=== PATIENT | female | born 1995 | race Caucasian/White ===

== ENCOUNTER 2017-01-06 16:03 | Emergency (ER) | payer BC ==
[~2017-01-06] VITALS: Ht 149.9 cm; Wt 82.0 kg
[~2017-01-06 16:03] MED LIST: NORT75CA2 PO; ONDA4TAB10 SL
[2017-01-06 16:15] VITALS: TEMP 37.5; Ht 149.9 cm; Wt 82.0 kg
[2017-01-06] MEDS ORDERED: ONDANSETRON INJ 2 MG/ML 2 ML VIAL IV STA (16:45)
[2017-01-06] MEDS ORDERED: SODIUM CHLORIDE 0.9% 1000ML 1,000 ML IV STA ×2 (16:45→19:27)
[2017-01-06 16:48] VITALS: O2SAT 98
[2017-01-06 17:13] LABS: BASO % 0.3 %; BASO ABS # 0.03 K/uL (0-0.2); COMPLETE YES; EOS % 1.4 %; HEMATOCRIT 37.6 % (37-47); IG% 0.2 %; LYMPH % 22.6 %; LYMPH ABS # 2.16 K/uL (1.2-3.4); MEAN CELL VOLUME 79.3 fL (80-100); MEAN CORPUSCULAR HEMOGLOBIN 25.9 pg (25-34); MEAN CORPUSCULAR HGB CONC 32.7 g/dl (32-36); MEAN PLATELET VOLUME 10.7 fL (7.4-10.4); MONO % 4.6 %; NEUT % 70.9 %; PLATELET COUNT 254 K/uL (130-400); RED BLOOD COUNT 4.74 M/uL (4.2-5.4); WHITE BLOOD COUNT 9.57 K/uL (4.8-10.8)
[2017-01-06 17:26] LABS: ISTAT CREATININE 0.7 mg/dl (0.6-1.3); ISTAT HEMOGLOBIN 12.9 g/dl (12.0-16.0); ISTAT IONIZED CALCIUM 1.18 mmol/l (1.12-1.32)
[2017-01-06 17:33] LABS: ALT/SGPT 38 U/L (12-78); AST/SGOT 18 U/L (15-37); BLOOD UREA NITROGEN 9 mg/dl (7-18); BUN/CREATININE RATIO 12.7 (10-20); CALCIUM 8.8 mg/dl (8.5-10.1); CARBON DIOXIDE 27 mmol/L (21-32); CHLORIDE 106 mmol/L (98-107); CREATININE 0.73 mg/dl (0.60-1.20); GLUCOSE 88 mg/dl (70-99); POTASSIUM 3.7 mmol/L (3.5-5.1); SODIUM 141 mmol/L (136-145)
[2017-01-06 17:39] LABS: ALKALINE PHOSPHATASE 103 U/L (45-117)
--- NOTE | 2017-01-06 17:42 | DIAGNOSTIC IMAGING REPORT ---
PA CHEST RADIOGRAPH AND UPRIGHT AND SUPINE AP RADIOGRAPHS OF THE ABDOMEN CLINICAL HISTORY: Abdominal pain, nausea and vomiting. COMPARISON STUDY: No previous studies for comparison. FINDINGS: Lung volumes are normal. Lungs are clear. There is no pneumothorax or pleural effusion. Cardiac size is normal. Mediastinal contours are normal. There is no free air. Bowel gas pattern is normal. IMPRESSION: 1. No free air or evidence of bowel obstruction. 2. No acute cardiopulmonary findings. Electronically signed by: Elvis Arriola M.D. 01/06/2017 5:41 PM Dictated Date/Time: 01/06/2017 5:40 PM
--- NOTE | 2017-01-06 18:01 | EMERGENCY ROOM VISIT NOTE ---
History Report prepared by Khoi: Gay Simmons Under the Supervision of: Dr. Lenin Dominguez M.D. First contact with patient: 16:37 Chief Complaint: VOMITING Stated Complaint: VOMITING,DIARRHEA,DEHYDRATED,CHEST PAIN History of Present Illness The patient is a 21 year old female who presents to the Emergency Room with complaints of persistent vomiting that started a couple days ago. She is also experiencing persistent diarrhea and is concerned about dehydration. She states that she was diagnosed with chronic abdominal pain 4-5 years ago and her current abdominal pain does not feel any different than her chronic pain. The patient intermittently experiences nausea and vomiting with the pain. She is prescribed Nortriptyline and Zofran. She state that she is unable to keep down water now. Her most recent episode of vomiting was earlier today and she took Zofran this morning. The patient is also experiencing intermittent sharp chest pain that started a couple months ago, but has become more constant over the last 24 hours. The patient denies any history of abdominal surgeries including a cholecystectomy or an appendectomy. She adds that she had an abdominal CT scan done a couple years ago, which revealed kidney stones, a lesion on her liver, and bilateral ovarian cysts. The patient's last normal menstrual period was about a half of a week ago. She denies any family history of heart issues or sudden . Source of History: patient Onset: a couple days ago Quality: other (vomiting) Timing: other (persistent) Associated Symptoms: + abdominal pain, + chest pain (intermittent), + diarrhea, + nausea, + vomiting Review of Systems See HPI for pertinent positives & negatives. A total of 10 systems reviewed and were otherwise negative. Past Medical & Surgical Medical Problems: (1) Ganglion cyst of wrist (2) History of viral gastroenteritis (3) Kidney stone (4) Ovarian cyst Surgical Problems: (1) History of wisdom tooth extraction Family History Cancer Social History Smoking Status: Never Smoker Alcohol Use: occasionally Drug Use: none Housing Status: lives with roommate Occupation Status: [employer] Current/Historical Medications Scheduled Nortriptyline Hcl (Pamelor), 75 MG PO HS Allergies Coded Allergies: No Known Allergies (Unverified , 10/01/15) Physical Exam Vital Signs Date Time Temp Pulse Resp B/P Pulse Ox O2 Delivery O2 Flow Rate FiO2 01/06/17 20:51 101 20 143/83 97 01/06/17 20:01 95 19 141/85 95 Room Air 01/06/17 17:49 102 18 143/83 98 Room Air 01/06/17 17:10 105 01/06/17 16:48 98 Room Air 01/06/17 16:48 98 Room Air 01/06/17 16:15 37.5 118 18 134/78 98 Room Air Physical Exam GENERAL: Patient is a healthy-appearing well-nourished female. HEAD: Normocephalic atraumatic EYES: Ocular movements intact pupils equal and react to light OROPHARYNX mucous membranes are moist no exudates present no erythema or edema present NECK: Supple no nuchal rigidity CHEST: Good equal expansion LUNGS: Clear and equal to auscultation CARDIAC: Normal S1 and S2 ABDOMEN: Soft nontender no guarding BACK: No CVA tenderness EXTREMITIES: No pain upon palpation normal muscle strength in all groups no clubbing cyanosis or edema NEURO: Patient is following commands is answering questions appropriately. Alert and oriented x3 Cranial Nerves 2-12 grossly intact Medical Decision & Procedures ER Provider Diagnostic Interpretation: X-ray results as stated below per interpretation by me and the radiologist: PA CHEST RADIOGRAPH AND UPRIGHT AND SUPINE AP RADIOGRAPHS OF THE ABDOMEN IMPRESSION: 1. No free air or evidence of bowel obstruction. 2. No acute cardiopulmonary findings. Electronically signed by: Elvis Arriola M.D. 01/06/2017 5:41 PM Dictated Date/Time: 01/06/2017 5:40 PM Laboratory Results 01/06/17 17:04 Red Blood Count 4.74, Mean Corpuscular Volume 79.3, Mean Corpuscular Hemoglobin 25.9, Mean Corpuscular Hemoglobin Concent 32.7, Mean Platelet Volume 10.7, Neutrophils (%) (Auto) 70.9, Lymphocytes (%) (Auto) 22.6, Monocytes (%) (Auto) 4.6, Eosinophils (%) (Auto) 1.4, Basophils (%) (Auto) 0.3, Neutrophils # (Auto) 6.79, Lymphocytes # (Auto) 2.16, Monocytes # (Auto) 0.44, Eosinophils # (Auto) 0.13, Basophils # (Auto) 0.03 01/06/17 17:04 Test 01/06/17 00:00 01/06/17 17:04 01/06/17 17:11 01/06/17 17:13 Urine Color YELLOW Urine Appearance CLEAR (CLEAR) Urine pH 7.0 (4.5-7.5) Urine Specific Frost 1.006 (1.000-1.030) Urine Protein NEG (NEG) Urine Glucose (UA) NEG (NEG) Urine Ketones NEG (NEG) Urine Occult Blood NEG (NEG) Urine Nitrite NEG (NEG) Urine Bilirubin NEG (NEG) Urine Urobilinogen NEG (NEG) Urine Leukocyte Esterase NEG (NEG) Urine Test NEG (NEG) White Blood Count 9.57 K/uL (4.8-10.8) Red Blood Count 4.74 M/uL (4.2-5.4) Hemoglobin 12.3 g/dL (12.0-16.0) Hematocrit 37.6 % (37-47) Mean Corpuscular Volume 79.3 fL (80-100) Mean Corpuscular Hemoglobin 25.9 pg (25-34) Mean Corpuscular Hemoglobin Concent 32.7 g/dl (32-36) Platelet Count 254 K/uL (130-400) Mean Platelet Volume 10.7 fL (7.4-10.4) Neutrophils (%) (Auto) 70.9 % Lymphocytes (%) (Auto) 22.6 % Monocytes (%) (Auto) 4.6 % Eosinophils (%) (Auto) 1.4 % Basophils (%) (Auto) 0.3 % Neutrophils # (Auto) 6.79 K/uL (1.4-6.5) Lymphocytes # (Auto) 2.16 K/uL (1.2-3.4) Monocytes # (Auto) 0.44 K/uL (0.11-0.59) Eosinophils # (Auto) 0.13 K/uL (0-0.5) Basophils # (Auto) 0.03 K/uL (0-0.2) RDW Standard Deviation 40.6 fL (36.4-46.3) RDW Coefficient of Variation 14.2 % (11.5-14.5) Immature Granulocyte % (Auto) 0.2 % Immature Granulocyte # (Auto) 0.02 K/uL (0.00-0.02) Est Creatinine Clear Calc Drug Dose 111.1 ml/min Estimated GFR () 134.5 Estimated GFR (Non- 116.1 BUN/Creatinine Ratio 12.7 (10-20) Calcium Level 8.8 mg/dl (8.5-10.1) Total Bilirubin 0.2 mg/dl (0.2-1) Direct Bilirubin < 0.1 mg/dl (0-0.2) Aspartate Amino Transf (AST/SGOT) 18 U/L (15-37) Alanine Aminotransferase (ALT/SGPT) 38 U/L (12-78) Alkaline Phosphatase 103 U/L (45-117) Total Creatine Kinase 51 U/L (26-192) Creatine Kinase MB < 0.5 ng/ml (0.5-3.6) Creatine Kinase MB Ratio (0-3.0) Troponin I < 0.015 ng/ml (0-0.045) Total Protein 7.4 gm/dl (6.4-8.2) Albumin 3.7 gm/dl (3.4-5.0) Lipase 131 U/L (73-393) Bedside D-Dimer 124 ng/mlFEU (0-450) Bedside Hemoglobin 12.9 g/dl (12.0-16.0) Bedside Hematocrit 38 % (37-47) Bedside Sodium 141 mEq/L (135-144) Bedside Potassium 3.6 mEq/L (3.3-5.0) Bedside Chloride 101 mEq/L (101-112) Bedside Total CO2 24 mEq/l (24-31) Anion Gap 19.0 mmol/L (16-25) Bedside Blood Urea Nitrogen 8 mg/dl (7-18) Bedside Creatinine 0.7 mg/dl (0.6-1.3) Bedside Glucose (other) 90 mg/dl (70-99) Bedside Ionized Calcium (Andria) 1.18 mmol/l (1.12-1.32) Labs reviewed by ED physician. Medications Administered Medications (Trade) Dose Ordered Sig/Graciela Route Start Time Stop Time Status Last Admin Dose Admin Sodium Chloride (Nss 1000ml) 1,000 ml @ 999 mls/hr Q1H1M STAT IV 01/06/17 16:45 01/06/17 17:45 DC 01/06/17 17:04 999 MLS/HR Ondansetron HCl (Zofran Inj) 4 mg NOW STAT IV 01/06/17 16:45 01/06/17 16:48 DC 01/06/17 17:04 4 MG Ketorolac Tromethamine (Toradol Inj) 30 mg NOW STAT IV 01/06/17 18:32 01/06/17 18:33 DC 01/06/17 18:39 30 MG Ondansetron HCl 1 homepack 1 homepack UD ONCE PO 01/06/17 19:15 01/06/17 19:16 DC 01/06/17 20:38 1 HOMEPACK Sodium Chloride (Nss 1000ml) 1,000 ml @ 999 mls/hr Q1H1M STAT IV 01/06/17 19:27 01/06/17 20:27 DC 01/06/17 19:39 999 MLS/HR Methylprednisolone Sodium Succinate (Solu-Medrol IV) 60 mg NOW STAT IV 01/06/17 19:27 01/06/17 19:31 DC 01/06/17 19:39 60 MG Prochlorperazine Edisylate (Compazine Inj) 10 mg NOW STAT IV 01/06/17 19:27 01/06/17 19:31 DC 01/06/17 19:40 10 MG Diphenhydramine HCl (Benadryl Inj) 50 mg NOW STAT IV 01/06/17 19:27 01/06/17 19:31 DC 01/06/17 19:40 50 MG ECG Indication: chest pain Rate (beats per minute): 108 Rhythm: sinus tachycardia Findings: no acute ischemic change, no ectopy Change: Repeat EKG on 01/06/2017 showed normal sinus rhythm, rate of 96, no acute ischemic changes, no ectopy ED Course 1639: Past medical records reviewed. The patient was evaluated in room A12. A complete history and physical examination was performed. 1645: Ordered Zofran Inj 4 mg IV, Sodium Chloride 1000 ml @ 999 mls/hr IV 1830: Upon reexamination the patient is doing well. I discussed results and treatment plan with the patient. She verbalizes agreement and understanding. The patient is ready for discharge. 1831: Ordered Toradol Inj 30 mg IV 1914: Ordered Ondansetron HCl 1 homepack PO 1926: Ordered Benadryl Inj 50 mg IV, Compazine Inj 10 mg IV, Solu-Medrol 60 mg IV, Sodium Chloride 1000 ml @ 999 mls/hr IV 1928: The patient's nurses informed me that the patient does not feel ready to leave because she is still vomiting. 2033: Upon reexamination the patient is doing better. I discussed results and treatment plan with the patient. She verbalizes agreement and understanding. The patient is ready for discharge. Medical Decision Differential diagnosis: Etiologies such as cardiac ischemia, aortic dissection, pulmonary embolism, pneumonia, pneumothorax, musculoskeletal, infections, pericarditis, myocarditis , esophageal rupture, gastrointestinal, as well as others were entertained. this is a 21-year-old female who presents emergency department complaining of chest pain. The patient has a history of nausea vomiting and follows up with gastroenterology doctors in [place]. She states she is not here for that vomiting or the diarrhea. Despite being here 4 hours patient was unable to provide a stool sample here in the emergency department. The patient is more concerned about chest pain. As the chest pain has been ongoing for the past several days and expect her troponin to be elevated if this were related to cardiac ischemia. As such it is not. In addition the patient has normal CK-MB as well as a normal EKG. EKGs were repeated twice in the emergency department without any changes noted. In addition the patient has normal d-dimer. Based on these findings I feel the patient can be safely discharged home for follow- up with cardiology. I also recommended the patient follow-up with gastroenterology area in the emergency department the patient was given normal saline bolus, Zofran Reglan Compazine and Benadryl for her nausea. This resulted in improvement in her symptoms. I do believe the patient can be safely discharged home. Patient was in agreement with the treatment plan. Impression Primary Impression: Precordial chest pain Scribe Attestation The scribe's documentation has been prepared under my direction and personally reviewed by me in its entirety. I confirm that the note above accurately reflects all work, treatment, procedures, and medical decision making performed by me. Departure Information Dispostion Home / Self-Care Referrals No Doctor, Assigned (PCP) Forms HOME CARE DOCUMENTATION FORM, IMPORTANT VISIT INFORMATION Patient Instructions Chest Pain - [facility], [facility] Additional Instructions Follow up with Dr Dong's office this week for continued chest pain No strenuous activity until follow up Follow up with Dr Chairez's office for stomach issues You have been examined and treated today on an emergency basis only. This is not a substitute for, or an effort to provide, complete comprehensive medical care. It is impossible to recognize and treat all injuries or illnesses in a single emergency department visit. It is therefore important that you follow up closely with [facility]. Call as soon as possible for an appointment. Thank you for your time and consideration. I look forward to speaking with you again soon. Please don't hesitate to call us if you have any questions.
[2017-01-06] MEDS ORDERED: KETOROLAC TROMETHAMINE 30 MG/ML VIAL IV STA (18:32)
[2017-01-06 18:52] LABS: URINE APPEARANCE CLEAR (CLEAR); URINE BILIRUBIN NEG (NEG); URINE COLOR YELLOW; URINE NITRITE NEG (NEG); URINE SPECIFIC GRAVITY 1.006 (1.000-1.030); UROBILINOGEN NEG (NEG); ZZUR CULT IF INDIC CLEAN CATCH NO
[2017-01-06 18:55] LABS: MANUAL MICROSCOPIC REQUIRED? NO; REVIEW REQ? NO
[2017-01-06] MEDS ORDERED: ONDANSETRON HOME PACK 4MG OD TAB PO ONE (19:15)
[2017-01-06] MEDS ORDERED: PROCHLORPERAZINE 5 MG/ML 2 ML VIAL IV STA (19:27)
[2017-01-06] MEDS ORDERED: DiphenhydrAMINE HCL 50 MG/ML VIAL IV STA (19:27)
[2017-01-06] MEDS ORDERED: METHYLPREDNISOLONE 125 MG VIAL IV STA (19:27)
[2017-01-06 20:51] VITALS: BP 143/83; PULSE 101; O2SAT 97
== END 2017-01-06 20:53 | disposition home or self-care (01) ==
LOC: C.EDB 16:04 → C.EDA 20:53
DX: R07.2 Precordial pain (principal); R10.9 Unspecified abdominal pain; G89.29 Other chronic pain; Z90.49 Acquired absence of other specified parts of digestive tract; Z87.442 Personal history of urinary calculi; Z79.899 Other long term (current) drug therapy

== ENCOUNTER 2017-02-01 04:40 | Emergency (ER) | payer BC ==
[~2017-02-01] VITALS: Ht 149.9 cm; Wt 82.9 kg
[~2017-02-01 04:40] MED LIST changes: -ONDA4TAB10 SL
[2017-02-01 04:44] VITALS: TEMP 36.6; Ht 149.9 cm; Wt 82.9 kg
[2017-02-01] MEDS ORDERED: KETOROLAC TROMETHAMINE 30 MG/ML VIAL IV STA (05:11)
--- NOTE | 2017-02-01 05:15 | EMERGENCY ROOM VISIT NOTE ---
History Report prepared by Orianaibjames: Adi Maravilla Under the Supervision of: Dr. Radha Arias D.O. First contact with patient: 04:47 Chief Complaint: SHOULDER PAIN Stated Complaint: SHOULDER PAIN TO NECK,ARM, CHEST AREA History of Present Illness The patient is a 21 year old female who presents to the Emergency Room with complaints of worsening left shoulder pain since approximately 1800 last night. The pain started out mild but is now 8/10 in severity. She has pain radiating from the left shoulder to the left chest and left side of her neck. She also has pain under the left breast. The pain does not radiate down her left arm. She has never had pain like this before. The patient had minimal relief with Bengay. She denies any recent injuries to the arm. She denies any weakness or numbness. Source of History: patient Onset: 1800 last night Position: shoulder (left) Symptom Intensity: 8/10 Timing: worsening Modifying Factors (Relieving): other (Bengay) Associated Symptoms: No numbness, No weakness Review of Systems See HPI for pertinent positives & negatives. A total of 10 systems reviewed and were otherwise negative. Past Medical & Surgical Medical Problems: (1) Ganglion cyst of wrist (2) History of viral gastroenteritis (3) Kidney stone (4) Ovarian cyst Surgical Problems: (1) History of wisdom tooth extraction Family History Cancer Social History Smoking Status: Never Smoker Alcohol Use: occasionally Drug Use: none Housing Status: lives with roommate Occupation Status: [employer] student Current/Historical Medications Scheduled Nortriptyline Hcl (Pamelor), 75 MG PO HS Allergies Coded Allergies: No Known Allergies (Unverified , 10/01/15) Physical Exam Vital Signs Date Time Temp Pulse Resp B/P Pulse Ox O2 Delivery O2 Flow Rate FiO2 02/01/17 06:48 97 16 128/72 100 02/01/17 04:44 36.6 107 22 143/90 98 Room Air Physical Exam General: Appears extremely uncomfortable, holding left arm and elbow in flexed position. HEENT: Head - normocephalic and atraumatic Pupils are equal, round, and reactive to light. Extraocular eye muscles are intact, and sclera are anicteric. Nose - moist nasal mucosa without discharge. Mouth - moist buccal mucosa. Oropharynx is nonerythematous and there is no tonsillar exudate or edema noted. Neck: Supple; no JVD, nuchal rigidity, cervical lymphadenopathy. Heart: Regular rate and rhythm. There is a normal S1 and S2 with no murmurs, clicks, or gallops appreciated. Lungs: Clear to auscultation bilaterally with no wheezes, rales, or rhonchi. Chest: Pain with palpation of the left mid axillary line, left anterior chest wall, and under the left breast. Abdomen: Soft, completely nontender, nondistended, with good bowel sounds. There are no palpable pulsatile masses or hepatosplenomegaly. There is no guarding, rigidity, or rebound noted. Extremities: Pain with palpation over the entire left shoulder and left deltoid. Skin: warm and dry with good turgor and no rashes. Medical Decision & Procedures ER Provider Diagnostic Interpretation: X-ray results as stated below per interpretation by me and the radiologist: CHEST 2 VIEWS ROUTINE CLINICAL HISTORY: Atypical chest pain. COMPARISON STUDY: 01/06/2017 FINDINGS: The heart is at the upper limits of normal in size. There is a suboptimal inspiration with hypoventilatory changes the lung bases. There is no lobar consolidation. There is no failure. There are no pleural effusions. There is no pneumothorax.[ IMPRESSION: Suboptimal inspiration. No active disease in the chest. Electronically signed by: Scar Dalal M.D. 02/01/2017 6:13 AM Dictated Date/Time: 02/01/2017 6:12 AM Medications Administered Medications (Trade) Dose Ordered Sig/Graciela Route Start Time Stop Time Status Last Admin Dose Admin Ketorolac Tromethamine (Toradol Inj) 30 mg NOW STAT IV 02/01/17 05:11 02/01/17 05:12 DC 02/01/17 05:11 30 MG Lorazepam (Ativan Tab) 1 mg NOW STAT SL 02/01/17 05:31 02/01/17 05:32 DC 02/01/17 05:35 1 MG Procedure Medications administered include Toradol IV, Ativan SL. ED Course 0445: The patient was evaluated by the resident, Dr. Ilya Moss. 0511: Toradol 30 mg IV. 0515: Past medical records reviewed. The patient was evaluated in room B6. A complete history and physical exam was performed. 0531: Ativan 1 mg SL as a muscle relaxant .. 0556: The patient's pain has not improved. She is going to X-ray now. upon return from radiology, the patient was feeling much better 0645: The patient was discharged by Dr. Moss. Medical Decision The patient is a 21 year old female who presents to the ED with left shoulder pain. Differential diagnosis includes pneumothorax, torticollis, cervical radiculopathy, shingles. The patient's symptoms were fairly sudden in onset. Chest x-ray shows no evidence of pneumothorax. There is no significant neck and vomit and therefore I do not suspect torticollis. There are no skin lesions noted on therefore I do not suspect shingles. Patient presents with discomfort in the left shoulder. Chest x-ray was unremarkable. She got significant relief of her discomfort with IM Toradol and by mouth Percocet. Impression Primary Impression: Acute pain of left shoulder Scribe Attestation The scribe's documentation has been prepared under my direction and personally reviewed by me in its entirety. I confirm that the note above accurately reflects all work, treatment, procedures, and medical decision making performed by me. Departure Information Dispostion Home / Self-Care Referrals [facility] (PCP) Forms HOME CARE DOCUMENTATION FORM, IMPORTANT VISIT INFORMATION Patient Instructions My [facility]
[2017-02-01] MEDS ORDERED: LORAZEPAM 1 MG TAB SL STA (05:31)
--- NOTE | 2017-02-01 06:15 | DIAGNOSTIC IMAGING REPORT ---
CHEST 2 VIEWS ROUTINE CLINICAL HISTORY: Atypical chest pain. COMPARISON STUDY: 01/06/2017 FINDINGS: The heart is at the upper limits of normal in size. There is a suboptimal inspiration with hypoventilatory changes the lung bases. There is no lobar consolidation. There is no failure. There are no pleural effusions. There is no pneumothorax.[ IMPRESSION: Suboptimal inspiration. No active disease in the chest. Electronically signed by: Scar Dalal M.D. 02/01/2017 6:13 AM Dictated Date/Time: 02/01/2017 6:12 AM
[2017-02-01 06:48] VITALS: BP 128/72; PULSE 97; O2SAT 100
--- NOTE | 2017-02-01 07:17 | EMERGENCY ROOM VISIT NOTE ---
History First contact with patient: 04:48 Chief Complaint: SHOULDER PAIN Stated Complaint: SHOULDER PAIN TO NECK,ARM, CHEST AREA History of Present Illness The patient is a 21 year old female who presents to the Emergency Room with complaints of L shoulder pain radiating to Left neck in addition to Left sided chest pain and pain beneath Left breast. Patient reports hx of mild to moderate pain starting evening of arrival around to 6-7PM . Pain acutely worsened around 4 AM morning of arrival up to 7-8/10. Pain came in waves with no known trigger. She tried Bengay cream but experienced no relief. She denies previous injury or previous similar symptoms. She denies numbness, weakness or tingling. Pt denies headache , fevers, chest pain, shortness of breath, nausea, vomiting, diarrhea, pain with urination, and melena. Review of Systems See HPI for pertinent positives & negatives. A total of 10 systems reviewed and were otherwise negative. Past Medical/Surgical History Medical Problems: (1) Ganglion cyst of wrist (2) History of viral gastroenteritis (3) Kidney stone (4) Ovarian cyst Surgical Problems: (1) History of wisdom tooth extraction Family History Cancer Social History Smoking Status: Never Smoker Alcohol Use: occasionally Drug Use: none Housing Status: lives with roommate Occupation Status: [employer] student Current/Historical Medications Scheduled Nortriptyline Hcl (Pamelor), 75 MG PO HS Allergies Coded Allergies: No Known Allergies (Unverified , 10/01/15) Physical Exam Vital Signs Date Time Temp Pulse Resp B/P Pulse Ox O2 Delivery O2 Flow Rate FiO2 02/01/17 06:48 97 16 128/72 100 02/01/17 04:44 36.6 107 22 143/90 98 Room Air Pain Rating (0-10): 4.0 Physical Exam GENERAL: alert,mod. distress, anxious , non-toxic EYE EXAM: normal conjunctiva, PERRL and EOM's grossly intact NECK: supple, no nuchal rigidity, no adenopathy, non-tender LUNGS: Clear to auscultation. Normal chest wall mechanics HEART: no murmurs, S1 normal and S2 normal CHEST: tenderness left side of chest, tenderness underneath breat, no rashes, erythema, ecchymoses ABDOMEN: abdomen soft, non-tender, normo-active bowel sounds, no masses, no rebound or guarding. BACK: Back is symmetrical on inspection and there is no deformity, no midline tenderness, no CVA tenderness. SKIN: no rashes and no bruising UPPER EXTREMITIES: holding Left forearm in flexion, limited ROM in LUE due to pain LOWER EXTREMITIES: No pitting edema. NEURO EXAM: Normal sensorium, cranial nerves II-XII gross intact, normal speech , no gross weakness of arms, no gross weakness of legs. Medical Decision & Procedures Medications Administered Medications (Trade) Dose Ordered Sig/Graciela Route Start Time Stop Time Status Last Admin Dose Admin Ketorolac Tromethamine (Toradol Inj) 30 mg NOW STAT IV 02/01/17 05:11 02/01/17 05:12 DC 02/01/17 05:11 30 MG Lorazepam (Ativan Tab) 1 mg NOW STAT SL 02/01/17 05:31 02/01/17 05:32 DC 02/01/17 05:35 1 MG Medical Decision 21 yo F p/w with acute LUE pain involving, shoulder, radiating up to neck in addition to Left sided CP and pain beneath left breast ddx: cervical radiculopathy, rotator cough impingement vs, muscle strain vs costochondritis vs, Torticollis Acute LUE/ Left sided Chest pain pain: -holding Left arm in flexion, neck pain -chest wall tenderness on palpation -Given Ativan 1mg -Given 30 mg Toradol Etiology of patient's pain is unclear. Given the involvement of chest wall, shoulder and neck, cervical radiculopathy seems less likely. Costochondritis might explain chest wall tenderness but would not explain neck or shoulder pain. presentation is not consistent with rotator cough as patient pain encompasses chest wall. Herpes Zoster is possible but no rash appeared on exam. Upon reevaluation, the patient is feeling better following Toradol. I discussed the findings and the treatment plan with the patient. She verbalizes agreement and understanding. She was discharged home with Tylenol or Motrin recommended for pain as needed Impression Primary Impression: Acute pain of left shoulder Departure Information Dispostion Home / Self-Care Condition GOOD Forms HOME CARE DOCUMENTATION FORM, IMPORTANT VISIT INFORMATION Patient Instructions My [facility] [employer] Additional Instructions -Take Tylenol or Motrin for pain as needed -Follow up with your Primary Care Doctor this upcoming week Resident Tracking Resident Involvement: Resident Care Provided Care Provided: Adult ED
== END 2017-02-01 06:50 | disposition home or self-care (01) ==
LOC: C.EDB 04:41
DX: M25.512 Pain in left shoulder (principal); Z87.442 Personal history of urinary calculi; N83.209 Unspecified ovarian cyst, unspecified side

== ENCOUNTER 2017-12-24 12:41 | Emergency (ER) | payer BC ==
[~2017-12-24] VITALS: Ht 149.9 cm; Wt 83.0 kg
[2017-12-24 12:54] VITALS: TEMP 37.4; Ht 149.9 cm; Wt 83.0 kg
[2017-12-24] MEDS ORDERED: SODIUM CHLORIDE 0.9% 1000ML 2,000 ML IV STA (13:33)
[2017-12-24] MEDS ORDERED: PROMETHAZINE HCL INJ 12.5 MG in SODIUM CHLORIDE 0.9% 50ML 50 ML IV STA (13:33)
[2017-12-24] MEDS ORDERED: LOPERAMIDE HCL 2 MG CAP PO STA (13:33)
[2017-12-24] MEDS ORDERED: ONDANSETRON INJ 2 MG/ML 2 ML VIAL IV STA (13:33)
[2017-12-24] MEDS ORDERED: KETOROLAC TROMETHAMINE 30 MG/ML VIAL IV STA (13:33)
[2017-12-24 14:16] LABS: CALCIUM 9.4 mg/dl (8.5-10.1); POTASSIUM 3.1 mmol/L (3.5-5.1)
[2017-12-24 14:22] LABS: TOTAL PROTEIN 8.9 gm/dl (6.4-8.2)
--- NOTE | 2017-12-24 14:30 | DIAGNOSTIC IMAGING REPORT ---
ABDOMEN 2VIEW W/PA CHEST RTN CLINICAL HISTORY: ABDOMINAL PAIN/GI pain. Nausea. COMPARISON STUDY: 08/06/2017 FINDINGS: The soft tissues, psoas shadows, renal outlines and intestinal gas pattern appear normal. There is no evidence for bowel obstruction. There is no evidence for free intraperitoneal air. No abnormal abdominal calcifications are seen. A frontal view of the chest was performed and is unremarkable. IMPRESSION: Normal study. The above report was generated using voice recognition software. It may contain grammatical, syntax or spelling errors. Electronically signed by: Luis Lugo M.D. 12/24/2017 2:29 PM Dictated Date/Time: 12/24/2017 2:28 PM
[2017-12-24 14:43] LABS: BASO % 0.1 %; BASO ABS # 0.01 K/uL (0-0.2); EOS % 0.6 %; EOS ABS # 0.06 K/uL (0-0.5); HEMATOCRIT 43.6 % (37-47); HEMOGLOBIN 14.4 g/dL (12.0-16.0); IG# 0.03 K/uL (0.00-0.02); LYMPH % 10.8 %; LYMPH ABS # 1.17 K/uL (1.2-3.4); MEAN CELL VOLUME 78.6 fL (80-100); MEAN CORPUSCULAR HEMOGLOBIN 25.9 pg (25-34); MEAN PLATELET VOLUME 11.1 fL (7.4-10.4); MONO % 7.5 %; MONO ABS # 0.81 K/uL (0.11-0.59); NEUT % 80.7 %; NEUT ABS # 8.74 K/uL (1.4-6.5); PLATELET COUNT 286 K/uL (130-400); RED CELL DISTRIBUTION WIDTH CV 14.6 % (11.5-14.5); RED CELL DISTRIBUTION WIDTH SD 41.8 fL (36.4-46.3); WHITE BLOOD COUNT 10.82 K/uL (4.8-10.8)
[2017-12-24] MEDS ORDERED: ONDA4TAB10 SL (16:28)
[2017-12-24 17:21] VITALS: BP 106/70; PULSE 108; O2SAT 100
--- NOTE | 2017-12-24 17:29 | EMERGENCY ROOM VISIT NOTE ---
History Report prepared by Khoi: Mushtaq Albarado Under the Supervision of: Dr. Germain Weller M.D. First contact with patient: 13:30 Chief Complaint: ABDOMINAL PAIN Stated Complaint: 4 DAYS DIARHEAA, 2 DAYS VOMITING, STOMACH PAIN, Nursing Triage Summary: pt to the ED with c/o diarrhea for 4 days and vomitting for 2 with dizziness and abd pain in lower abd History of Present Illness The patient is a 22 year old female who presents to the Emergency Room with complaints of constant generalized abdominal pain beginning four days ago. The patient rates her current pain as a 7/10 in severity, but states that she occasionally has "flashes" of increased pain. She also complains of dizziness and nausea. She has had diarrhea for the past four days, and has been vomiting for the past two days. The patient denies eating anything abnormal recently. She has been around people with cough and congestion, but has not been around anyone with similar GI symptoms. She denies urinary symptoms, or bloody stool. The patient notes that she has a history of GI "problems" for which she is being worked up. She has been unable to receive a formal diagnosis, but was thought to have gastroenteritis at one point. She is scheduled to see a neurologist for these symptoms tomorrow. The patient has had a colonoscopy and endoscopy. She states that her current symptoms feel different from her typical GI symptoms. Source of History: patient Onset: Four days ago Position: abdomen (generalized) Symptom Intensity: 7/10 Timing: constant Associated Symptoms: + nausea, + vomiting (x2 days ), + diarrhea (x4 days), No hematochezia, No urinary symptoms Note: Additional symptoms: dizziness. Review of Systems See HPI for pertinent positives & negatives. A total of 10 systems reviewed and were otherwise negative. Past Medical & Surgical Medical Problems: (1) Ganglion cyst of wrist (2) History of viral gastroenteritis (3) Kidney stone (4) Ovarian cyst Surgical Problems: (1) History of wisdom tooth extraction Family History Cancer Social History Smoking Status: Never Smoker Alcohol Use: occasionally Drug Use: none Housing Status: lives with roommate Occupation Status: [employer] Current/Historical Medications Scheduled Ondasetron Odt (Zofran Odt), 4 MG SL Q6H Allergies Coded Allergies: No Known Allergies (Unverified , 12/24/17) Physical Exam Vital Signs Date Time Temp Pulse Resp B/P (MAP) Pulse Ox O2 Delivery O2 Flow Rate FiO2 12/24/17 17:21 108 20 106/70 100 12/24/17 16:04 93 20 109/59 98 Room Air 12/24/17 14:00 119 18 122/80 97 Room Air 12/24/17 12:54 37.4 123 16 126/86 97 Physical Exam GENERAL: Patient is in no acute distress. HEENT: No acute trauma, normocephalic atraumatic, mucous membranes moist, no nasal congestion, no scleral icterus. NECK: No stridor, no adenopathy, no meningismus, trachea is midline. LUNGS: Clear to auscultation bilaterally, no wheeze, no rhonchi, breath sounds equal. HEART: Tachycardic with a regular rhythm. No murmurs. ABDOMEN: Soft, bowel sounds positive, no hernias, no peritonitis. Tender diffusely, but mostly to the lower abdomen bilaterally. EXTREMITIES: No cyanosis or edema, full range of motion of all the joints without pain or difficulty, no signs for acute trauma. NEUROLOGIC: Oriented x 3, no acute motor or sensory deficits, no focal weakness. SKIN: No rash, no jaundice, no diaphoresis. Medical Decision & Procedures ER Provider Diagnostic Interpretation: Radiology results as stated below per my review and radiologist interpretation: ABDOMEN 2VIEW W/PA CHEST RTN FINDINGS: The soft tissues, psoas shadows, renal outlines and intestinal gas pattern appear normal. There is no evidence for bowel obstruction. There is no evidence for free intraperitoneal air. No abnormal abdominal calcifications are seen. A frontal view of the chest was performed and is unremarkable. IMPRESSION: Normal study. The above report was generated using voice recognition software. It may contain grammatical, syntax or spelling errors. Electronically signed by: Luis Lugo M.D. 12/24/2017 2:29 PM Laboratory Results 12/24/17 13:04 Red Blood Count 5.55, Mean Corpuscular Volume 78.6, Mean Corpuscular Hemoglobin 25.9, Mean Corpuscular Hemoglobin Concent 33.0, Mean Platelet Volume 11.1, Neutrophils (%) (Auto) 80.7, Lymphocytes (%) (Auto) 10.8, Monocytes (%) (Auto) 7.5, Eosinophils (%) (Auto) 0.6, Basophils (%) (Auto) 0.1, Neutrophils # (Auto) 8.74, Lymphocytes # (Auto) 1.17, Monocytes # (Auto) 0.81, Eosinophils # (Auto) 0.06, Basophils # (Auto) 0.01 12/24/17 13:04 Test 12/24/17 13:04 12/24/17 15:50 White Blood Count 10.82 K/uL (4.8-10.8) Red Blood Count 5.55 M/uL (4.2-5.4) Hemoglobin 14.4 g/dL (12.0-16.0) Hematocrit 43.6 % (37-47) Mean Corpuscular Volume 78.6 fL (80-100) Mean Corpuscular Hemoglobin 25.9 pg (25-34) Mean Corpuscular Hemoglobin Concent 33.0 g/dl (32-36) Platelet Count 286 K/uL (130-400) Mean Platelet Volume 11.1 fL (7.4-10.4) Neutrophils (%) (Auto) 80.7 % Lymphocytes (%) (Auto) 10.8 % Monocytes (%) (Auto) 7.5 % Eosinophils (%) (Auto) 0.6 % Basophils (%) (Auto) 0.1 % Neutrophils # (Auto) 8.74 K/uL (1.4-6.5) Lymphocytes # (Auto) 1.17 K/uL (1.2-3.4) Monocytes # (Auto) 0.81 K/uL (0.11-0.59) Eosinophils # (Auto) 0.06 K/uL (0-0.5) Basophils # (Auto) 0.01 K/uL (0-0.2) RDW Standard Deviation 41.8 fL (36.4-46.3) RDW Coefficient of Variation 14.6 % (11.5-14.5) Immature Granulocyte % (Auto) 0.3 % Immature Granulocyte # (Auto) 0.03 K/uL (0.00-0.02) Anion Gap 8.0 mmol/L (3-11) Est Creatinine Clear Calc Drug Dose 81.0 ml/min Estimated GFR () 91.3 Estimated GFR (Non- 78.8 BUN/Creatinine Ratio 13.0 (10-20) Calcium Level 9.4 mg/dl (8.5-10.1) Magnesium Level 2.0 mg/dl (1.8-2.4) Total Bilirubin 0.2 mg/dl (0.2-1) Aspartate Amino Transf (AST/SGOT) 17 U/L (15-37) Alanine Aminotransferase (ALT/SGPT) 30 U/L (12-78) Alkaline Phosphatase 98 U/L (45-117) Total Protein 8.9 gm/dl (6.4-8.2) Albumin 4.0 gm/dl (3.4-5.0) Globulin 4.9 gm/dl (2.5-4.0) Albumin/Globulin Ratio 0.8 (0.9-2) Lipase 118 U/L (73-393) Human Chorionic Gonadotropin, Qual NEG (NEG) Urine Color YELLOW Urine Appearance CLEAR (CLEAR) Urine pH 6.0 (4.5-7.5) Urine Specific [place] 1.021 (1.000-1.030) Urine Protein TRACE (NEG) Urine Glucose (UA) NEG (NEG) Urine Ketones NEG (NEG) Urine Occult Blood NEG (NEG) Urine Nitrite NEG (NEG) Urine Bilirubin NEG (NEG) Urine Urobilinogen NEG (NEG) Urine Leukocyte Esterase NEG (NEG) Urine WBC (Auto) 1-5 /hpf (0-5) Urine RBC (Auto) 0-4 /hpf (0-4) Urine Hyaline Casts (Auto) 5-10 /lpf (0-5) Urine Epithelial Cells (Auto) >30 /lpf (0-5) Urine Bacteria (Auto) 2+ (NEG) Laboratory results reviewed by me. Medications Administered Medications (Trade) Dose Ordered Sig/Graciela Route Start Time Stop Time Status Last Admin Dose Admin Sodium Chloride 2,000 ml @ 999 mls/hr Q2H1M STAT IV 12/24/17 13:33 12/24/17 15:33 DC 12/24/17 13:33 999 MLS/HR Ondansetron HCl (Zofran Inj) 4 mg NOW STAT IV 12/24/17 13:33 12/24/17 13:36 DC 12/24/17 14:01 4 MG Ketorolac Tromethamine (Toradol Inj) 30 mg NOW STAT IV 12/24/17 13:33 12/24/17 13:36 DC 12/24/17 14:01 30 MG Promethazine HCl 12.5 mg/Sodium Chloride 50.5 ml @ 204 mls/hr NOW STAT IV 12/24/17 13:33 12/24/17 13:47 DC 12/24/17 14:29 204 MLS/HR Loperamide HCl (Imodium Cap) 4 mg NOW STAT PO 12/24/17 13:33 12/24/17 13:36 DC 12/24/17 14:01 4 MG ED Course 1331: The patient was evaluated in room B6. A complete history and physical exam was performed. 1333: Ordered Imodium Cap 4 mg PO, Promethazine HCl 12.5 mg/Sodium Chloride 50.5 ml @ 204 mls/hr IV, Toradol Inj 30 mg IV, Zofran Inj 4 mg IV, Sodium Chloride 2000 ml @ 999 mls/hr IV. 1420: Reevaluated the patient. Discussed results and discharge instructions: she verbalized understanding and agreement. The patient is ready for discharge. Medical Decision The patient is a 22 year old female who presents to the ED with complaints of abdominal pain. Differential diagnoses considered include dehydration, UTI, electrolyte imbalance, , renal failure, liver failure, and viral/ foodborne illness. There is a very mild leukocytosis, this is likely consistent with her vomiting and diarrhea. No worrisome anemia. No significant electrolyte abnormally, kidney failure, hepatitis or pancreatitis. Urinalysis does not show evidence for infection, contamination was seen. testing was negative. Obstruction series showed no pneumonia, free air or bowel obstruction. On exam , the patient was not toxic or febrile, there was no peritonitis. The patient received IV saline, IV Toradol, IV Zofran and IV Phenergan. She received oral Imodium. The patient feels markedly better, her heart rate is improved. I'm not sure if this is a viral illness or food borne illness, this could even be a flareup of her yet to be diagnosed underlying bowel disease. The patient is not toxic, she is doing well, she is improved. She will be discharged home with a bland diet, Zofran for nausea, if worsening, she can return. Medication Reconcilliation Current Medication List: was personally reviewed by me Blood Pressure Screening Patient's blood pressure: Normal blood pressure Blood pressure disposition: Did not require urgent referral Impression Primary Impression: Dehydration Additional Impression: Nausea vomiting and diarrhea Scribe Attestation The scribe's documentation has been prepared under my direction and personally reviewed by me in its entirety. I confirm that the note above accurately reflects all work, treatment, procedures, and medical decision making performed by me. Departure Information Dispostion Home / Self-Care Prescriptions Ondasetron Odt (ZOFRAN ODT) 4 Mg Tab 4 MG SL Q6H for Nausea, #12 TAB Prov: Germain Weller M.D. 12/24/17 Referrals Román Chamberlain MD (PCP) Forms HOME CARE DOCUMENTATION FORM, IMPORTANT VISIT INFORMATION Patient Instructions My [facility] Additional Instructions fluids rest tylenol for pain zofran 1-2 tab every 6 hours for nausea slowly advance diet---crackers, soup, toast, gatorade, rice return if worsening Problem Qualifiers
== END 2017-12-24 17:22 | disposition home or self-care (01) ==
LOC: C.EDB 12:43
DX: E86.0 Dehydration (principal); R11.2 Nausea with vomiting, unspecified; R19.7 Diarrhea, unspecified; Z87.442 Personal history of urinary calculi; Z80.9 Family history of malignant neoplasm, unspecified